=== PATIENT | male | born 1960 | race Caucasian/White ===

== ENCOUNTER 2020-05-05 07:17 | Emergency (ER) | payer OTHER, SELFPAY ==
[2020-05-05] VITALS (7 sets, daily range): BP systolic 113–147; BP diastolic 63–96; PULSE 55–65; RESP 14–19; TEMP 36.6; O2SAT 82–100
[2020-05-05] MEDS: Normal Saline Flush 10 ML SYR IVP (07:25)
--- NOTE | 2020-05-05 07:26 | ED.GENADUL_ITS ---
Discharge Plan Disposition Patient Disposition: OTHER Condition: Stable Discharge Details Clinical Impression: Opiate addiction, Opiate withdrawal Primary Care Provider: Yanick Wade ED Provider: Rina Quinteros Home Meds and New Rx's Prescriptions: Continued dextroamphetamine-amphetamine [Adderall] 15 mg Tablet 15 mg PO BID RF: 0 Discharge Instructions Instructions: Opioid Withdrawal (ED) Additional Instructions: Go directly to the [facility] clinic down the road from here on [address] to be dosed properly on your suboxone to help with your withdrawal symptoms. Follow up with your primary care doctor for continued management of your suboxone dosing and opiate addiction. Return immediately to the emergency department if you develop any worsening or new concerning symptoms. Discharge Data Discharge Physician: Rina Quinteros Medical Decision Making <Zion Dave MD - Last Filed: 05/05/20 07:31> 59 yo male who states he has hx of opiate addiction no other past medical history and was on suboxone but hasn't been taken for months due to relapse in using heroin transnasally comes in with feeling as if he is in opiate withdrawal. He last used heroin yesterday, denies using IV heroin, using other drugs or alcohol use. He started to feel hittery and anxious and felt as though he was in opiate withdrawal so took two of his suboxone and had no relief and so came here. Denies si/hi. He arrives caox4 and does appear anxious constantly moving in the stretcher. He has pin point pupils, normal lung sounds, no abdominal tenderness and is answering questions appropriately. Suspect he could be in opiate withdrawal given history of recent heroin use and symptoms, will tx with clonidine and ativan, evaluate for possible coingestants and electrolyte abnormalities and reassess pt signed out to oncoming provider pending labs and reassessment Differential Diagnosis Differential Diagnosis: anxiety , opiate addicition, opiate withdrawal <Rina Quinteros DO - Last Filed: 05/05/20 09:10> 0800 --please see Dr. Dave's note for initial presentation, exam and plan. Case endorsed to follow-up on patient's labs and final disposition. Labs reviewed and note a white blood cell count of 12, UDS notes amphetamines and THC. Patient states he takes Adderall and an unknown antidepressant. He denies any other alcohol or drug use. Patient has been feeling better and then his restlessness returned. He was given another dose of Ativan. Patient states his Suboxone is dosed by a Dr. Darrell Wade in [facility]. He requested that we not contact him as he does not want him knowing of his relapse. I discussed with him that it would be advisable to discuss with his prescribing doctor if he wants to continue his Suboxone. He was then agreeable but I was unable to find contact information for Dr. Wade. I discussed the case with Dr. Soto as the [facility] clinic and she stated she would be happy to see patient right now to properly dose of Suboxone to help with his withdrawal symptoms. This was discussed with patient and his Yasmine who will take him there now. Usual and customary return precautions given prior to discharge. Medical Records Medical records reviewed: Yes I reviewed the patient's medical records. HPI <Zion Dave MD - Last Filed: 05/05/20 07:31> General Mode of arrival: ambulatory . Date/Time Provider Initiated Documentation: 05/05/20 07:23 . Limitations to Documentation: no limitations . Information obtained by: patient . History of Present Illness 59 year old M presents to the emergency department with the chief complaint of opiate withdrawal, described as moderate, Patient started experiencing this hour(s) (12) and it has been constant. No relieving factors improve symptom(s), No exacerbating factors reported . Related Data Home Medications Medication Instructions Recorded Confirmed dextroamphetamine-amphetamine 15 mg PO BID 05/05/20 05/05/20 [Adderall] Allergies Allergy/AdvReac Type Severity Reaction Status Date / Time No Known Allergies Allergy Unverified 05/05/20 07:41 General Stated Complaint: DrugWithdr/MAT JANICE: 3 Review of Systems <Zion Dave MD - Last Filed: 05/05/20 07:31> All systems reviewed & are unremarkable except as noted in HPI and below Constitutional Constitutional: Denies chills, Denies fever(s) and Denies weakness Cardiovascular Cardiovascular: Denies chest pain and Denies dyspnea Respiratory Respiratory: Denies cough and Denies dyspnea Gastrointestinal Gastrointestinal: Denies abdominal pain, Denies nausea and Denies vomiting Musculoskeletal Musculoskeletal: Denies joint swelling Neurologic Neurologic: Denies weakness Psychiatric Psychiatric: Denies depression [facility] <Zion Dave MD - Last Filed: 05/05/20 07:31> Social History Smoking/Tobacco Use Status: Never Smoking risk assessment performed?: Yes Alcohol Intake: never Drug use: Daily Substance use type: heroin Do you feel safe at home: Yes Do you feel safe in your relationship?: Yes Exam <Zion Dave MD - Last Filed: 05/05/20 07:31> Const General: anxious Orientation: alert HENMT Head: normal to inspection Ears: external ears normal General nose exam: external nose normal Mouth: moist mucous membranes Eyes General: appearance normal, both eyes and all related structures Neck Neck: normal visual inspection Resp Effort & Inspection: normal respiratory effort and able to speak in complete sentences Cardio Rate: regular rate Skin General skin exam: no rashes or lesions noted Neuro General: patient alert and patient oriented x3 Extrem General: normal to inspection Psych Attitude: cooperative Course <Zion Dave MD - Last Filed: 05/05/20 07:31> Vital Signs Vital signs: Vital Signs Temperature 36.6 C 05/05/20 07:17 Pulse 64 05/05/20 07:17 Respiratory Rate 16 05/05/20 07:17 Blood Pressure 147/77 H 05/05/20 07:17 Pulse Oximetry 100 05/05/20 07:17 Temperature 36.6 C 05/05/20 07:17 Temperature Source Skin 05/05/20 07:17 Pulse 64 05/05/20 07:17 Respiratory Rate 16 05/05/20 07:17 Blood Pressure 147/77 H 05/05/20 07:17 Blood Pressure Position Sitting 05/05/20 07:17 Pulse Oximetry 100 05/05/20 07:17 Oxygen Delivery Method Room Air 05/05/20 07:17 Oxygen Flow Rate 0 05/05/20 07:17 Sign Out <Zion Dave MD - Last Filed: 05/05/20 07:31> Sign Out Data: Sign Out Comment: history of opiate addiction was on suboxone has been off for months as he relapsed into using heroin, last use yesterday morning, feeling as though he is in withdrawal. Follow up on labs and response to clonidicine and ativan, may want to speak with etiquette coach as well. Last updated by Zion Dave MD at 05/05/20 07:32
[2020-05-05] MEDS: cloNIDine 0.1 MG TAB PO (07:34)
[2020-05-05 07:36] LABS: Bilirubin Negative (Negative); Blood Negative (Negative); Clarity Clear (Clear); Glucose Negative (Negative); Ketones Negative (Negative); Leukocyte Esterase Negative (Negative); Nitrite Negative (Negative); Specific Gravity 1.015 (1.005-1.025); Urobilinogen 0.2 EU/dL (Up TO 0.2)
[2020-05-05] MEDS: LORazepam 2 MG/ML VIAL 1 MG IVP ×2 (07:36→08:45)
[2020-05-05] MEDS: Normal Saline 1,000 ML 1000 ML IV (07:36)
[2020-05-05 07:40] LABS: Abs Immature Grans 0.04 10^3/uL (0.0-0.06); Absolute Basophil Count 0.07 10^3/uL (0.0-0.2); Absolute Eosinophil Count 0.23 10^3/uL (0.0-0.7); Absolute Lymphocyte Count 1.38 10^3/uL (1.2-3.4); Absolute Monocyte Count 0.64 10^3/uL (0.1-0.8); Basophils % 0.6; Eosinophils % 1.9; HCT 43.3 % (40.0-50.0); HGB 13.9 g/dL (13.5-17.5); Immature Grans % 0.3; Lymphocytes % 11.5; MCHC 32.1 % (32.0-36.0); MCV 93.5 fL (80-95); MPV 9.1 fL (8.0-11.0); Monocytes % 5.3; Neutrophils % 80.4; Nucleated RBC 0 %; Platelet Count 312 10^3/uL (130-400); RBC 4.63 10^6/uL (4.36-5.78); RDW 14.2 % (11.8-14.1); RDW-SD 48.6 fL; WBC 12.01 10^3/uL (4.4-10.8)
[2020-05-05 07:42] LABS: Absolute Neutrophil Count 9.66 10^3/uL (1.2-6.7)
[2020-05-05 07:48] LABS: *AMPHETAMINES SCREEN URINE POSITIVE (Negative); *BARBITURATES SCREEN URINE Negative (Negative); *BENZODIAZEPINES SCREEN URINE Negative (Negative); Cannabinoids THC POSITIVE (Negative); Cocaine Screen,Urine Negative (Negative); METHADONE URINE SCREEN Negative (Negative); OPIATES URINE SCREEN Negative (Negative)
[2020-05-05 07:50] LABS: Tricyclic Antidepressants Negative (Negative)
[2020-05-05 07:53] LABS: ALT 46 U/L (16-63); AST 29 U/L (15-37); Albumin 3.6 g/dL (3.4-5.0); Alkaline Phosphatase 62 U/L (46-116); Anion Gap 3.3 mmol/L (3-11); BUN 13 mg/dL (7-18); Bilirubin, Total 0.3 mg/dL (0.2-1.0); CO2 29.7 mmol/L (21.0-32.0); Calcium 8.7 mg/dL (8.5-10.1); Chloride 107 mmol/L (98-107); Glucose 112 mg/dL (74-106); Potassium 4.1 mmol/L (3.5-5.1); Sodium 140 mmol/L (136-145); Total Protein 7.5 g/dL (6.4-8.2)
[2020-05-05 08:05] LABS: ETHANOL BLOOD < 3.0 mg/dL (<3)
== END 2020-05-05 09:05 | disposition other institution (70) ==
PROVIDERS: Emergency Medicine; Emergency Provider Physician Assistant; PCP Physician Assistant
DX: F11.23 Opioid dependence with withdrawal (principal)
CPT/HCPCS: 36415; 80053; 80307; 96361; 96374; 96376; 99284; 80320; 81003; 83735; 85025; J2060